=== PATIENT | female | born 1960 ===

== ENCOUNTER 2017-04-27 09:43 | Emergency (ER) | payer BC ==
[2017-04-27 10:00] VITALS: BP 132/73
[2017-04-27] MEDS ORDERED: traMADol TAB* 50 MG PO ONE (10:54)
--- NOTE | 2017-04-27 11:05 | UC ---
UC General HPI - History of Current Complaint Chief Complaint: UCChestPain Stated Complaint: RT RIB AREA PAIN Time Seen by Provider: 04/27/17 10:10 Hx Obtained From: Patient Onset/Duration: Sudden Onset, Lasting Days - 3, Still Present, Worse Since - getting a little worse, interferring with sleep Timing: Constant Onset Severity: Moderate Current Severity: Moderate Pain Intensity: 2 Pain Location at: rt ribs 5 and 6 Character: sharp Aggravating: movement, pressure Alleviating: nothing Associated Signs & Symptoms: Negative: Agitation, Abdominal Pain, Anticoagulation Therapy, Back Pain, Cough, Dizziness, Fever, Headache, Nausea, SOB, Trauma, Wheezing - Allergy/Home Medications Allergies/Adverse Reactions: Allergies Allergy/AdvReac Type Severity Reaction Status Date / Time No Known Allergies Allergy Verified 04/27/17 10:00 Home Medications: Home Medications Calcium Carbonate-Vitamin D [Calcium 600 + D] 1 tab PO BID 04/27/17 [History Confirmed 04/27/17] Lansoprazole [Prevacid] 30 mg PO DAILY 04/27/17 [History Confirmed 04/27/17] Simvastatin [Zocor 5 MG-] 5 mg PO DAILY 04/27/17 [History Confirmed 04/27/17] PMH/Surg Hx/FS Hx/Imm Hx Endocrine History: Dyslipidemia GI/ History: Gastroesophageal Reflux - Surgical History Surgical History: Yes Surgery Procedure, Year, and Place: ENDOSCOPY. T&A - Family History Known Family History: Positive: Diabetes, Other - cancer - Social History Lives: With Family Alcohol Use: Rare Substance Use Type: None Smoking Status (MU): Never Smoked Tobacco Review of Systems Constitutional: Negative Skin: Negative ENT: Negative Respiratory: Negative Cardiovascular: Other - rt sided rib pain Gastrointestinal: Negative Genitourinary: Negative Musculoskeletal: Other: - see hpi Neurological: Negative All Other Systems Reviewed And Are Negative: Yes Physical Exam Triage Information Reviewed: Yes Appearance: Well-Appearing, No Pain Distress, Well-Nourished Vital Signs: Initial Vital Signs Temp 98.9 F 04/27/17 09:53 Pulse 105 04/27/17 09:53 Resp 14 04/27/17 09:53 BP 132/73 04/27/17 09:53 Pulse Ox 100 04/27/17 09:53 Vital Signs Reviewed: Yes Eyes: Positive: Conjunctiva Clear. Negative: Discharge ENT: Positive: Hearing grossly normal. Negative: Muffled voice, Hoarse voice Neck: Positive: Supple Respiratory: Positive: Lungs clear, Normal breath sounds, No respiratory distress, No accessory muscle use Cardiovascular: Positive: RRR - HR 88bpm on manual re-check, No Murmur Abdominal Exam: Normal Abdomen Description: Positive: Nontender, Soft. Negative: Distended, Guarding Bowel Sounds: Positive: Present Musculoskeletal: Positive: Strength Intact, ROM Intact, No Edema, Other: - tender to palpation on ant ventral aspect of ribs 5 and 6 on the right Neurological: Positive: Alert, Muscle Tone Normal Psychological: Positive: Age Appropriate Behavior Skin Exam: Normal Skin: Positive: Other - no bruising over rib in question Course/Dx - Differential Dx - Multi-Symptom Provider Diagnoses: rib contusion Discharge - Discharge Plan Condition: Stable Disposition: HOME Prescriptions: traMADol TAB* [Ultram*] 50 mg PO Q8H PRN #14 tab MDD 3 TABS PRN Reason: Pain Patient Education Materials: Rib Contusion (ED) Referrals: Hilary Johnson MD [Primary Care Provider] - 3 Days Additional Instructions: ULTRAM (tramadol hydrochloride): Ultram is an excellent drug for pain relief. It is not a narcotic, but it works in a similar way. Ultram can take up to two hours for full effect. Although not addicting, Ultram is best avoided in patients with a history of drug abuse. Ultram should not be used with alcohol, sleeping pills, or narcotics. If you're prone to seizures, Ultram can make you more likely to have a seizure. Ultram can be hazardous when combined with MAO-inhibitor antidepressants (such as Nardil or Parnate). Be sure your doctor is aware of all medicines you are taking. Persons with severe liver or kidney disease should increase the time between doses of Ultram. Discuss this with your doctor if you're uncertain. Side effects of Ultram can include dizziness, nausea, constipation, sleepiness, and itching. (These side effects are also seen with narcotic pain medicines.) Please call your doctor if you have other disturbing effects. YOU WOULD LIKELY BENEFIT FROM OSTEOPATHIC MANIPULATION. WE RECOMMEND THAT YOU FIND AN OSTEOPATHIC PHYSICIAN IN YOUR AREA WHO DOES LYMPHATIC, MYOFACIAL AND VISCERAL WORK Since you do not like to take NSAIDS we are giving you some other over the counter options for pain control with anti-inflammatory properties that are less likely to bother your GI tract: -Tumeric (with or without Boswellia) -Arnica with Hypercium -CBD oil
== END 2017-04-27 11:08 | disposition home or self-care (01) ==
LOC: UCCORT 09:43
DX: S20.211A Contusion of right front wall of thorax, initial encounter (principal); E78.5 Hyperlipidemia, unspecified; K21.9 Gastro-esophageal reflux disease without esophagitis; Z79.899 Other long term (current) drug therapy; X58.XXXA Exposure to other specified factors, initial encounter; Y92.9 Unspecified place or not applicable
CPT/HCPCS: 99211; A9270-GY; G0463